=== PATIENT | male | born 1935 | race Caucasian/White ===

== ENCOUNTER 2022-02-23 07:38 | Emergency (ER) | payer MEDICARE, BC, SELFPAY ==
[2022-02-23 07:48] VITALS: BP 180/92; PULSE 68; RESP 20; TEMP 36.3; O2SAT 96; BMI 32.4
--- NOTE | 2022-02-23 07:57 | CRLHL7_ITS ---
For Patients: As a result of the Century Cures Act, medical imaging exams and procedure reports are released immediately into your electronic medical record. You may view this report before your referring provider. If you have questions, please contact your health care provider. Indication : Dizziness. TECHNIQUE: Axial noncontrast CT cuts were performed from the skull base to the vertex. Findings : There is moderate cerebral volume loss. 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 There is no intracranial mass, hemorrhage or cortical infarction. There is no midline shift or transtentorial herniation. The calvarium is intact. The visualized paranasal sinuses and orbits appear normal. IMPRESSION: Age related changes of the brain. No acute abnormality. Please note that all CT scans at this facility use dose modulation, iterative reconstruction, and/or weight-based dosing when appropriate to reduce radiation dose to as low as reasonably achievable. Dictated by Dominic Sotelo MD @ 02/23/2022 9:09:44 AM (Electronically Signed)
--- NOTE | 2022-02-23 07:59 | ED.GENADULT ---
HPI - General Adult General Time Seen by Provider: 07:58 Date Seen: 02/23/22 Chief complaint: Dizziness/Vertigo Stated complaint: High BP last reading 180/120 Time Seen by Provider: 02/23/22 07:50 Source: patient Mode of arrival: ambulatory Limitations: no limitations History of Present Illness HPI narrative: Noah is a very pleasant 86 year white male who went to bed feeling well last night, woke up this morning stood by his bed, got up somewhat quickly and felt dizzy he fell sideways but caught himself. He did not have any injury from the fall. He did not hit the floor. He had no focal weakness no inability to speak no visual problem no facial asymmetry, he had no chest pain or shortness of breath. He has felt well recently. He is only on losartan, and a medication for diarrhea. He had back surgery within the last year that went well. He denies any bowel or bladder incontinence fever chills perineal numbness. Patient reports the spell lasted maybe 3 minutes. He feels completely normal now. He had no palpitations. He has no heart disease Related Data Home Medications Medication Instructions Recorded Confirmed brimonidine 0.2 % eye drops drp OPHTHALMIC (EYE) 02/23/22 budesonide 3 mg mg PO 02/23/22 capsule,delayed,extended release cephalexin 500 mg capsule mg 02/23/22 latanoprost 0.005 % eye drops drp OPHTHALMIC (EYE) 02/23/22 losartan 100 tab 02/23/22 mg-hydrochlorothiazide 25 mg tablet timolol maleate 0.5 % eye drops drp OPHTHALMIC (EYE) 02/23/22 travoprost 0.004 % eye drops drp OPHTHALMIC (EYE) 02/23/22 Allergies Allergy/AdvReac Type Severity Reaction Status Date / Time No Known Drug Allergies Allergy Verified 02/23/22 07:56 Review of Systems Status of ROS: Reports: 10 or more systems reviewed and unremarkable except as noted in History and below [facility] Medical History Arthritis Social History Smoking Status: Never smoker Do you use any of these nicotine containing products: None Second hand tobacco smoke exposure: No How often do you have a drink containing alcohol: 2-4 times a month How many standard drinks containing alcohol do you have on a typical day: 1 or 2 How often do you have six or more drinks on one occasion: Never AUDIT-C Alcohol total score: 2 Non-prescribed substance use: denies use service: Yes Active Problems (Updated 02/23/22 @ 08:20 by Zheng Aquino MD) Hypertension (Acute) I10 Joint replaced (Acute) Z96.60 Dizziness (Acute) R42 Medical History Arthritis Social History Smoking Status: Never smoker Do you use any of these nicotine containing products: None Second hand tobacco smoke exposure: No How often do you have a drink containing alcohol: 2-4 times a month How many standard drinks containing alcohol do you have on a typical day: 1 or 2 How often do you have six or more drinks on one occasion: Never AUDIT-C Alcohol total score: 2 Non-prescribed substance use: denies use service: Yes Exam Narrative: Exam Narrative: Objective: In general patient is no apparent distress HEENT is unremarkable, no scleral icterus, no facial asymmetry neck Mouth is well hydrated, tongue protrudes midline Neck is supple Chest is clear Heart rate and rhythm regular 2/6 systolic murmur occasional ectopic beat noted Abdomen obese benign nontender Extremities are no edema Neurologic nonfocal upper lower extremities good strength sensation Skin exam is unremarkable, warm and dry Const: Vital Signs, click to edit/add: Vital Signs - 24 hr 02/23/22 07:48 02/23/22 08:00 02/23/22 08:37 Temperature 97.4 F L Pulse Rate [Pulse Oximeter] 68 65 91 Respiratory Rate 20 18 Blood Pressure [Ri ght Upper Arm] 180/92 H 152/89 H 150/91 H Pulse Oximetry 96 94 93 Course Course Hospital Course: Because of the patient's complaint of dizziness and his age, I think would be appropriate to do a head CT scan to make sure he has not had a stroke, electrolytes lab values, IV hydration. EKG and troponin. Vital Signs Vital signs: Initial Vital Signs Temperature 97.4 F L 02/23/22 07:48 Temperature Source Temporal Artery Scan 02/23/22 07:48 Pulse Rate 68 02/23/22 07:48 Pulse Rhythm 02/23/22 07:48 Respiratory Rate 20 02/23/22 07:48 Blood Pressure 180/92 H 02/23/22 07:48 Blood Pressure Mean 121 02/23/22 07:48 Pulse Oximetry 96 02/23/22 07:48 Oxygen Delivery Method 02/23/22 07:48 Vital Signs Temperature 97.4 F L 02/23/22 07:48 Pulse Rate 68 02/23/22 07:48 Respiratory Rate 20 02/23/22 07:48 Blood Pressure 180/92 H 02/23/22 07:48 Pulse Oximetry 96 02/23/22 07:48 Temperature 97.4 F L 02/23/22 07:48 Pulse Rate 91 02/23/22 08:37 Respiratory Rate 18 02/23/22 08:00 Blood Pressure 150/91 H 02/23/22 08:37 Pulse Oximetry 93 02/23/22 08:37 Medical Decision Making MDM Narrative Medical decision making narrative: The patient has a 3 minute period of dizziness, he does report that he was working in his garage yesterday building a ramp. It was warm and humid. He reports he does not drink enough water. Certainly he got up from bed and felt dizzy this could be a orthostatic type change due to mild dehydration, will rehydrate him, rule out stroke, rule out an abnormal troponin the patient had these symptoms several hours ago. His back to normal now. 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 scan is by my view unremarkable radiology confirms. There are only age-related changes. Troponin is unremarkable CBC is unremarkable some other labs are still pending but at this point I think Cole can return home, light activity and discharge instructions as in the discharge section. Lab Data Labs: Lab Results 02/23/22 02/23/22 Range/Units 08:35 08:35 WBC 6.45 (4.50-11.00) K/uL RBC 3.46 L (4.30-5.90) m/uL Hgb 11.8 L (13.5-17.5) gm/dL Hct 35.9 L (37.0-53.0) % MCV 104 H (80-100) fL MCH 34 (26-34) pg MCHC 33 (32-36) gm/dL RDW Coeff of Anju 13.6 (11.5-15.5) % Plt Count 208 (140-440) K/uL Neut % (Auto) 71.1 (42.0-72.0) % Lymph % (Auto) 17.1 L (20-44) % [place] % (Auto) 8.8 (0.0-11.0) % Eos % (Auto) 2.2 (0.0-7.0) % Baso % (Auto) 0.6 (0.0-3.0) % Neut # (Auto) 4.59 (1.7-7.0) K/uL Lymph # (Auto) 1.10 (0.90-2.90) K/uL [place] # (Auto) 0.60 (0.00-0.90) K/UL Eos # (Auto) 0.14 (0.00-0.50) K/uL Baso # (Auto) 0.04 (0.00-0.30) K/uL Abs Immat Gran (auto) 0.01 (0.00-0.30) K/uL POC Troponin I 0.00 L (0.01-0.04) ng/ml Discharge Plan Discharge Clinical Impression: Dizziness Patient Disposition: Home w/ Parent or Adult Condition: Improved Instructions: Dizziness (ED) Activity Detail: Light activity, adequate hydration, recheck with regular doctor next 2 3 days, continue home medications Discharge Diet: Regular Prescriptions: No Action latanoprost 0.005 % drops OPHTHALMIC (EYE) 0RF travoprost 0.004 % drops OPHTHALMIC (EYE) 0RF Label Comments: INSTILL 1 DROP INTO BOTH EYES AT BEDTIME losartan-hydrochlorothiazide 100-25 mg tablet 0RF Label Comments: TAKE 1 TABLET BY MOUTH EVERY DAY cephalexin 500 mg capsule 0RF Label Comments: TAKE 4 CAPSULES BY MOUTH 30 TO 60 MINUTES PRIOR TO DENTAL WORK brimonidine 0.2 % drops OPHTHALMIC (EYE) 0RF budesonide 3 mg capsule,delayed,extend.release PO 0RF Label Comments: TAKE 3 CAPS ONCE A DAY X 1 MONTH, TAKE 2 CAPS ONCE A DAY X 1 MONTH, TAKE 1 CAP ONCE A DAY X 1 MONTH timolol maleate 0.5 % drops OPHTHALMIC (EYE) 0RF Follow Up/Referrals: Melodie Nick MD [Primary Care Provider] - Stand Alone Forms: [employer] Info Instructions
[2022-02-23 08:00] VITALS: BP 152/89; PULSE 65; RESP 18; O2SAT 94
[2022-02-23 08:37] VITALS: BP 150/91; PULSE 91; O2SAT 93
[2022-02-23 08:51] LABS: Basophils Absolute Auto 0.04 K/uL (0.00-0.30); Basophils Percent Auto 0.6 % (0.0-3.0); Eosinophils Absolute Auto 0.14 K/uL (0.00-0.50); Eosinophils Percent Auto 2.2 % (0.0-7.0); Hematocrit 35.9 % (37.0-53.0); Hemoglobin* 11.8 gm/dL (13.5-17.5); Immature Granulocytes Abs Auto 0.01 K/uL (0.00-0.30); Lymphocytes Percent Auto 17.1 % (20-44); Mean Corpuscular HGB Conc 33 gm/dL (32-36); Mean Corpuscular Hemoglobin 34 pg (26-34); Mean Corpuscular Volume 104 fL (80-100); Monocytes Percent Auto 8.8 % (0.0-11.0); Neutrophils Absolute Auto 4.59 K/uL (1.7-7.0); Neutrophils Percent Auto 71.1 % (42.0-72.0); Platelet Count* 208 K/uL (140-440); RDW Coefficient of Variation % 13.6 % (11.5-15.5); Red Blood Count 3.46 m/uL (4.30-5.90); White Blood Count* 6.45 K/uL (4.50-11.00)
[2022-02-23 08:53] LABS: Slide Review Reflex No
[2022-02-23] MEDS: 0.9 % SODIUM CHLORIDE 1000 ml 1,000 ML 6000 ML IV (08:59)
[2022-02-23 09:00] VITALS: BP 149/105; PULSE 58; RESP 18; O2SAT 90
[2022-02-23 09:04] LABS: Albumin* 3.8 g/dL (3.3-5.0); Chloride* 107 mmol/L (96-114)
[2022-02-23 09:05] LABS: Sodium* 135 mmol/L (135-149)
[2022-02-23 09:06] LABS: INR 0.97 (0.91-1.10); Prothrombin Time 13.3 Seconds
[2022-02-23 09:07] LABS: Alkaline Phosphatase* 87 U/L (40-150); Aspartate Amino Transferase* 37 U/L (12-35); Bilirubin Direct* 0.3 mg/dL (0.0-0.5); Bilirubin Total* 0.9 mg/dL (0.1-1.5); Blood Urea Nitrogen* 35 mg/dL (7-30); Carbon Dioxide* 27 mmol/L (20-32); Creatinine* 0.9 mg/dL (0.5-1.5); Est. Creatinine Clearance* 56.78; Estimated Glomerular Filt Rate 84.22; Total Protein* 6.3 g/dL (6.0-8.3)
[2022-02-23 09:08] LABS: Alanine Aminotransferase* 20 U/L (4-50); Calcium* 9.2 mg/dL (8.4-10.6); Glucose* 103 mg/dL (60-115)
[2022-02-23 09:16] LABS: NT Pro B Type NatriureticPept* 474 PG/mL (0-450)
[2022-02-23 09:27] LABS: C Reactive Protein* < 0.5 mg/dL (0.5-1.0)
== END 2022-02-23 09:50 ==
LOC: ED 08:48
PROVIDERS: Emergency Provider Family Medicine; PCP Family Medicine
DX: R42 Dizziness and giddiness (principal)
CPT/HCPCS: 36415; 70450; 80048; 80076; 83880; 84484; 85025; 85610; 86140; 93005; 99285; J7030

== ENCOUNTER 2022-02-23 23:12 | Emergency (ER) | payer MEDICARE, BC, SELFPAY ==
[2022-02-23 23:20] VITALS: BP 169/93; PULSE 74; RESP 18; TEMP 36.8; O2SAT 94; BMI 32.5
[2022-02-24 00:15] VITALS: BP 133/84; BP 143/75; BP 148/99; PULSE 75; PULSE 84; PULSE 99
[2022-02-24 00:17] LABS: Basophils Absolute Auto 0.04 K/uL (0.00-0.30); Basophils Percent Auto 0.6 % (0.0-3.0); Eosinophils Absolute Auto 0.09 K/uL (0.00-0.50); Eosinophils Percent Auto 1.3 % (0.0-7.0); Hematocrit 33.8 % (37.0-53.0); Hemoglobin* 11.3 gm/dL (13.5-17.5); Immature Granulocytes Abs Auto 0.02 K/uL (0.00-0.30); Lymphocytes Absolute Auto 1.44 K/uL (0.90-2.90); Lymphocytes Percent Auto 20.9 % (20-44); Mean Corpuscular HGB Conc 33 gm/dL (32-36); Mean Corpuscular Hemoglobin 35 pg (26-34); Mean Corpuscular Volume 104 fL (80-100); Monocytes Percent Auto 7.8 % (0.0-11.0); Neutrophils Absolute Auto 4.77 K/uL (1.7-7.0); Neutrophils Percent Auto 69.1 % (42.0-72.0); Platelet Count* 211 K/uL (140-440); RDW Coefficient of Variation % 13.8 % (11.5-15.5); Red Blood Count 3.26 m/uL (4.30-5.90)
[2022-02-24 00:20] LABS: Slide Review Reflex No
--- NOTE | 2022-02-24 00:29 | ED.GIBLEED ---
HPI - GI Bleed General Chief complaint: GI Bleed Stated complaint: BLOODY STOOL Time Seen by Provider: 02/23/22 23:46 History of Present Illness HPI Narrative: Patient is a a 86-year-old gentleman who was here earlier today for dizziness. Workup was unremarkable. His hemoglobin was stable at 11.8. Patient was sent home and his dizziness has resolved. Patient passed 1 maroon-colored clotted stool proximally 3 hours ago. He has been feeling well ever since is had no further bowel movements. He has had no fevers no chills no night sweats no abdominal pain. He is now feeling 100% well and would like to go back home. He is not on aspirin or any blood thinners. Related Data Home Medications Medication Instructions Recorded Confirmed brimonidine 0.2 % eye drops drp OPHTHALMIC (EYE) 02/23/22 budesonide 3 mg mg PO 02/23/22 capsule,delayed,extended release cephalexin 500 mg capsule mg 02/23/22 latanoprost 0.005 % eye drops drp OPHTHALMIC (EYE) 02/23/22 losartan 100 tab 02/23/22 mg-hydrochlorothiazide 25 mg tablet timolol maleate 0.5 % eye drops drp OPHTHALMIC (EYE) 02/23/22 travoprost 0.004 % eye drops drp OPHTHALMIC (EYE) 02/23/22 Allergies Allergy/AdvReac Type Severity Reaction Status Date / Time No Known Drug Allergies Allergy Verified 02/23/22 07:56 Review of Systems Status of ROS: Reports: 10 or more systems reviewed and unremarkable except as noted in History and below [facility] Medical History Arthritis Social History Smoking Status: Never smoker Do you use any of these nicotine containing products: None Second hand tobacco smoke exposure: No How often do you have a drink containing alcohol: 2-4 times a month How many standard drinks containing alcohol do you have on a typical day: 1 or 2 How often do you have six or more drinks on one occasion: Never AUDIT-C Alcohol total score: 2 Non-prescribed substance use: denies use service: Yes Exam Narrative: Exam Narrative: EXAM GENERAL: Patient appears comfortable and well. EYES: No scleral icterus. LYMPH: No supraclavicular or cervical lymphadenopathy. SKIN: Visible skin seen during exam normal or with benign process only. EXT: No dependent lower extremity pedal edema. HEART: Regular rate and rhythm with no murmurs, rubs, or gallops. LUNGS: Clear to auscultation bilaterally with no crackles or wheezes. ABD: Soft, non tender, non distended. PSYCH: Good eye contact, speech is not pressured. Const: Vital Signs, click to edit/add: Vital Signs - 24 hr 02/23/22 23:20 02/24/22 00:15 Temperature 98.2 F Pulse Rate [Right Pulse Oximeter] 74 Pulse Rate [orthos tatic lying Right Blood Pressure Cuf f] 75 Pulse Rate [orthos tatic sitting Righ t Blood Pressure C uff] 84 Pulse Rate [orthos tatic standing Rig ht Blood Pressure Cuff] 99 Respiratory Rate 18 Blood Pressure [Le ft Upper Arm] 169/93 H Blood Pressure [or thostatic lying Ri ght Arm] 143/75 H Blood Pressure [or thostatic sitting Right Arm] 148/99 H Blood Pressure [or thostatic standing Right Arm] 133/84 Pulse Oximetry 94 Course Course Hospital Course: Patient seen examined. Patient shows no signs of orthostasis. Hemoglobin down only from 11.8-11.3. Vital Signs Vital signs: Initial Vital Signs Temperature 98.2 F 02/23/22 23:20 Temperature Source Temporal Artery Scan 02/23/22 23:20 Pulse Rate 74 02/23/22 23:20 Respiratory Rate 18 02/23/22 23:20 Blood Pressure 169/93 H 02/23/22 23:20 Blood Pressure Mean 118 02/23/22 23:20 Blood Pressure Position Sitting 02/23/22 23:20 Pulse Oximetry 94 02/23/22 23:20 Oxygen Delivery Method 02/23/22 23:20 Vital Signs Temperature 98.2 F 02/23/22 23:20 Pulse Rate 74 02/23/22 23:20 Respiratory Rate 18 02/23/22 23:20 Blood Pressure 169/93 H 02/23/22 23:20 Pulse Oximetry 94 02/23/22 23:20 Temperature 98.2 F 02/23/22 23:20 Pulse Rate 75 02/24/22 00:15 Respiratory Rate 18 02/23/22 23:20 Blood Pressure 143/75 H 02/24/22 00:15 Pulse Oximetry 94 02/23/22 23:20 MDM - GI Bleed MDM Narrative Medical decision making narrative: Patient had full workup earlier today. He has normal vital signs is not passing any further dark tarry Or melanotic stools. He now feels well and is been 3 hours since his last bowel movement. His hemoglobin is stable and we did elect to send home with close outpatient follow-up. Lab Data Labs: Lab Results 02/24/22 Range/Units 00:05 WBC 6.90 (4.50-11.00) K/uL RBC 3.26 L (4.30-5.90) m/uL Hgb 11.3 L (13.5-17.5) gm/dL Hct 33.8 L (37.0-53.0) % MCV 104 H (80-100) fL MCH 35 H (26-34) pg MCHC 33 (32-36) gm/dL RDW Coeff of Anju 13.8 (11.5-15.5) % Plt Count 211 (140-440) K/uL Neut % (Auto) 69.1 (42.0-72.0) % Lymph % (Auto) 20.9 (20-44) % [place] % (Auto) 7.8 (0.0-11.0) % Eos % (Auto) 1.3 (0.0-7.0) % Baso % (Auto) 0.6 (0.0-3.0) % Neut # (Auto) 4.77 (1.7-7.0) K/uL Lymph # (Auto) 1.44 (0.90-2.90) K/uL [place] # (Auto) 0.50 (0.00-0.90) K/UL Eos # (Auto) 0.09 (0.00-0.50) K/uL Baso # (Auto) 0.04 (0.00-0.30) K/uL Abs Immat Gran (auto) 0.02 (0.00-0.30) K/uL Discharge Plan Discharge Clinical Impression: Hematochezia Patient Disposition: Home, Self-Care Condition: Stable Instructions: Melena (ED) Additional Instructions: follow-up with your doctor by phone tomorrow to discuss further treatment and monitor for further loose bloody stools. Activity Level: No Restrictions Discharge Diet: Regular Prescriptions: No Action latanoprost 0.005 % drops OPHTHALMIC (EYE) 0RF travoprost 0.004 % drops OPHTHALMIC (EYE) 0RF Label Comments: INSTILL 1 DROP INTO BOTH EYES AT BEDTIME losartan-hydrochlorothiazide 100-25 mg tablet 0RF Label Comments: TAKE 1 TABLET BY MOUTH EVERY DAY cephalexin 500 mg capsule 0RF Label Comments: TAKE 4 CAPSULES BY MOUTH 30 TO 60 MINUTES PRIOR TO DENTAL WORK brimonidine 0.2 % drops OPHTHALMIC (EYE) 0RF budesonide 3 mg capsule,delayed,extend.release PO 0RF Label Comments: TAKE 3 CAPS ONCE A DAY X 1 MONTH, TAKE 2 CAPS ONCE A DAY X 1 MONTH, TAKE 1 CAP ONCE A DAY X 1 MONTH timolol maleate 0.5 % drops OPHTHALMIC (EYE) 0RF Follow Up/Referrals: Melodie Nick MD [Primary Care Provider] - Stand Alone Forms: [facility] Info Instructions
== END 2022-02-24 01:04 | disposition home or self-care (01) ==
LOC: ED 02-24 00:55
PROVIDERS: Emergency Provider Internal Medicine; PCP Family Medicine
DX: R42 Dizziness and giddiness (principal)
CPT/HCPCS: 36415; 85025; 99283; 99284

== ENCOUNTER 2022-03-14 08:07 | Outpatient (CLI) | payer MEDICARE, BC, SELFPAY | END 2022-03-14 08:08 | disposition home or self-care (01) | LOC: AMB 03-29 20:43 | PROVIDERS: PCP Family Medicine; Visit Provider Emergency Medicine | DX: I10 Essential (primary) hypertension (principal) ==

== ENCOUNTER 2022-03-17 16:00 | Outpatient (RCR) | payer MEDICARE, BC, SELFPAY | END 2022-09-10 09:47 | disposition home or self-care (01) | PROVIDERS: PCP Family Medicine; Visit Provider Family Medicine | DX: R26.9 Unspecified abnormalities of gait and mobility (principal); M62.81 Muscle weakness (generalized); Z51.89 Encounter for other specified aftercare | CPT/HCPCS: 97110 ==

== ENCOUNTER 2023-01-29 15:00 | Outpatient (RCR) | payer MEDICARE, BC, SELFPAY | END 2023-05-29 23:59 | disposition home or self-care (01) | PROVIDERS: PCP Family Medicine; Visit Provider Family Medicine | DX: Z98.1 Arthrodesis status (principal); R53.1 Weakness; R26.9 Unspecified abnormalities of gait and mobility; R26.81 Unsteadiness on feet; Z51.89 Encounter for other specified aftercare | CPT/HCPCS: 97110; 97162 ==

== ENCOUNTER 2024-03-19 14:02 | Emergency (ER) | payer MEDICARE, BC, SELFPAY ==
[2024-03-19] VITALS (7 sets, daily range): BP systolic 121; BP diastolic 63; PULSE 69–79; RESP 16; TEMP 36.7; O2SAT 90–95; BMI 31.0
--- NOTE | 2024-03-19 14:26 | CRLHL7_ITS ---
For Patients: As a result of the Cures Act, medical imaging exams and procedure reports are released immediately into your electronic medical record. You may view this report before your referring provider. If you have questions, please contact your health care provider. Indication: Injury. Technique: Left knee, 3 views. Comparison: None. Findings/Impression: Bones: Alignment is normal. No displaced fractures or bone lesions. Joint spaces: Mild tricompartmental degenerative changes with chondrocalcinosis. Large joint effusion. Soft tissues: Unremarkable. Dictated by Cole Fields MD @ 03/19/2024 3:37:28 PM (Electronically Signed)
--- NOTE | 2024-03-19 14:27 | ED_ITS ---
HPI - Fall General Chief Complaint: Fall/Minor Trauma Stated Complaint: Fall, L knee injury Time Seen by Provider: 03/19/24 14:05 History of Present Illness HPI Narrative: Patient is an 88-year-old gentleman who stumbled while walking his dog yesterday. Patient will was walking his small dog when he stumbled and twisted his left knee. He fell to the ground scraping his right knee and crawled back to his 4 wheeled walker with the right knee. Superficial abrasions are healing well. Patient takes full aspirin daily. He did not hit his head he did not lose consciousness. Patient is having tenderness in the left knee. The knee has some minor swelling but no abrasions. Patient is able put some limited weight on his knee but is very tender. There is no redness or warmth no significant swelling no signs of effusion. Related Data Home Medications ?Medication ?Instructions ?Recorded ?Confirmed brimonidine 0.2 % eye drops 1 drp ophthalmic (eye) 02/23/22 budesonide 3 mg mg PO 02/23/22 capsule,delayed,extended release cephalexin 500 mg capsule mg 02/23/22 latanoprost 0.005 % eye drops drp ophthalmic (eye) 02/23/22 losartan 100 1 tab 02/23/22 mg-hydrochlorothiazide 25 mg tablet timolol maleate 0.5 % eye drops drp ophthalmic (eye) 02/23/22 travoprost 0.004 % eye drops drp ophthalmic (eye) 02/23/22 amlodipine 5 mg tablet 5 mg PO DAILY 03/19/24 03/19/24 Allergies Allergy/AdvReac Type Severity Reaction Status Date / Time No Known Drug Allergies Allergy Verified 03/19/24 14:09 Review of Systems Status of ROS: Reports: 10 or more systems reviewed and unremarkable except as noted in History and below [facility] Medical History Arthritis ?M19.90 - Unspecified osteoarthritis, unspecified site (ICD-10) Social History Smoking Status: Never smoker Do you use any of these nicotine containing products: None Second hand tobacco smoke exposure: No How often do you have a drink containing alcohol: 2-4 times a month How many standard drinks containing alcohol do you have on a typical day: 1 or 2 How often do you have six or more drinks on one occasion: Never AUDIT-C Alcohol total score: 2 Non-prescribed substance use: denies use service: Yes Exam Narrative: Exam Narrative: EXAM GENERAL: Patient appears comfortable and well. EYES: No scleral icterus. LYMPH: No supraclavicular or cervical lymphadenopathy. SKIN: Abrasions noted over the right knee healing well. EXT: Examination left knee shows no effusions no erythema no warmth. Chronic arthritis of the left ankle noted. HEART: Regular rate and rhythm with no murmurs, rubs, or gallops. LUNGS: Clear to auscultation bilaterally with no crackles or wheezes. ABD: Soft, non tender, non distended. PSYCH: Good eye contact, speech is not pressured. Const: Vital Signs, click to edit/add: Vital Signs - 24 hr 03/19/24 14:11 03/19/24 14:22 03/19/24 14:23 Temperature 98.0 F Pulse Rate 73 69 Pulse Rate [Pulse Oximeter] 70 Respiratory Rate 16 Blood Pressure 121/63 Blood Pressure [Ri ght Upper Arm] 121/63 Pulse Oximetry 93 95 93 Oxygen Delivery Me thod Room Air 03/19/24 14:30 03/19/24 14:55 03/19/24 15:00 Temperature Pulse Rate 69 74 75 Pulse Rate [Pulse Oximeter] Respiratory Rate Blood Pressure Blood Pressure [Ri ght Upper Arm] Pulse Oximetry 90 95 95 Oxygen Delivery Me thod 03/19/24 15:15 Temperature Pulse Rate 79 Pulse Rate [Pulse Oximeter] Respiratory Rate Blood Pressure Blood Pressure [Ri ght Upper Arm] Pulse Oximetry 92 Oxygen Delivery Me thod Course Course ED Course: Patient seen and examined. X-ray of the left knee pending. Vital Signs Vital signs: Initial Vital Signs Temperature 98.0 F 03/19/24 14:11 Temperature Source Temporal Artery Scan 03/19/24 14:11 Pulse Rate 70 03/19/24 14:11 Respiratory Rate 16 03/19/24 14:11 Blood Pressure 121/63 03/19/24 14:11 Blood Pressure Mean 82 03/19/24 14:11 Blood Pressure Position High-Fowlers 03/19/24 14:11 Pulse Oximetry 93 03/19/24 14:11 Oxygen Delivery Method Room Air 03/19/24 14:11 Vital Signs Temperature 98.0 F 03/19/24 14:11 Pulse Rate 70 03/19/24 14:11 Respiratory Rate 16 03/19/24 14:11 Blood Pressure 121/63 03/19/24 14:11 Pulse Oximetry 93 03/19/24 14:11 Oxygen Delivery Method Room Air 03/19/24 14:11 Temperature 98.0 F 03/19/24 14:11 Pulse Rate 79 03/19/24 15:15 Respiratory Rate 16 03/19/24 14:11 Blood Pressure 121/63 03/19/24 14:22 Pulse Oximetry 92 03/19/24 15:15 Oxygen Delivery Method Room Air 03/19/24 14:11 Medications Administered Medications: Discontinued Medications Generic Name Dose Route Start Last Admin Trade Name Freq PRN Reason Stop Dose Admin Diphtheria/Tetanus/Acell Pertussis 0.5 ml 03/19/24 14:27 03/19/24 14:57 Tetanus/Diphth/Pertussis 0.5 Ml Syringe IM 03/19/24 14:28 0.5 ml .ONCE ONE Administration MDM - Fall MDM Narrative Medical decision making narrative: Patient is a 88-year-old gentleman who fell yesterday while walking his dog. He has pain and swelling in the left knee as well as abrasions on the right needed. Tetanus shot is updated. X-ray series is reviewed and he does have a small effusion but no fractures. At this time I did recommend ice compression elevation Tylenol Motrin and follow-up with primary care later in the week for PT versus MRI if symptoms do not improve. Differential diagnosis includes but not limited to knee sprain knee fracture dislocation hematoma hemarthrosis. Discharge Plan Discharge Clinical Impression: Injury of knee Patient Disposition: Home, Self-Care Condition: Stable Instructions: Knee Sprain (ED) Additional Instructions: Ice Tylenol Motrin Wrap Rest Follow-up with your doctor as needed. Activity Level: No Restrictions Discharge Diet: Regular Prescriptions: No Action latanoprost 0.005 % drops OPHTHALMIC (EYE) travoprost 0.004 % drops OPHTHALMIC (EYE) Patient Comments: INSTILL 1 DROP INTO BOTH EYES AT BEDTIME losartan-hydrochlorothiazide 100-25 mg tablet 1 tab Patient Comments: TAKE 1 TABLET BY MOUTH EVERY DAY cephalexin 500 mg capsule Patient Comments: TAKE 4 CAPSULES BY MOUTH 30 TO 60 MINUTES PRIOR TO DENTAL WORK brimonidine 0.2 % drops 1 drp OPHTHALMIC (EYE) budesonide 3 mg capsule,delayed,extend.release PO Patient Comments: TAKE 3 CAPS ONCE A DAY X 1 MONTH, TAKE 2 CAPS ONCE A DAY X 1 MONTH, TAKE 1 CAP ONCE A DAY X 1 MONTH timolol maleate 0.5 % drops OPHTHALMIC (EYE) amlodipine 5 mg tablet 5 mg PO DAILY Follow Up/Referrals: Melodie Nick MD [Primary Care Provider] - Stand Alone Forms: [employer] Info Instructions
--- OUTSIDE RECORDS SUMMARY | 2024-03-19 14:35 | XMS_ITS | Referral Summary ---
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 Active bismuth subsalicylate (PEPTO BISMOL) 262 MG chewable tablet Take 3 tablets by mouth 3 times daily For Colitis Active brimonidine (ALPHAGAN) 0.2 % ophthalmic solutionIndications: Open-Angle Glaucoma 1 drop every morning Active losartan-hydrochloro thiazide (HYZAAR) 100-25 MG tabletIndications:Hy pertension Take 1 tablet by mouth daily Active melatonin 1 MG CAPSIndications:Inso mnia Take 2 mg by mouth nightly as needed Active acetaminophen (TYLENOL) 500 MG tablet Take 1,000 mg by mouth every 6 hours as needed Active travoprost VAZQUEZ FREE (TRAVATAN Z) 0.004 % ophthalmic solutionIndications: Open-Angle Glaucoma Place 1 drop into both eyes At Bedtime Active ondansetron (ZOFRAN-ODT) 4 MG ODT tabIndications:S/P lumbar fusion Take 1 tablet (4 mg) by mouth every 6 hours as needed for nausea or vomiting 10 tablet 06/16/2020 Active oxyCODONE (ROXICODONE) 5 MG tabletIndications:S/ P lumbar fusion Take 1-2 tablets (5-10 mg) by mouth every 4 hours as needed for moderate to severe pain (one tab for moderate pain, two tabs for severe pain) 40 tablet 06/16/2020 Active senna-docusate (SENOKOT-S/PERICOLAC E) 8.6-50 MG tabletIndications:S/ P lumbar fusion Take 2 tablets by mouth 2 times daily as needed for constipation 60 tablet 06/16/2020 Active bisacodyl (DULCOLAX) 10 MG suppositoryIndicatio ns:Constipation, unspecified constipation type Place 1 suppository (10 mg) rectally daily as needed for constipation 06/18/2020 Active polyethylene glycol (MIRALAX) 17 g packetIndications:Co nstipation, unspecified constipation type Take 17 g by mouth 2 times daily as needed (constipation) 06/18/2020 Active methocarbamol (ROBAXIN) 500 MG tabletIndications:S/ P lumbar fusion Take 1 tablet (500 mg) by mouth 4 times daily as needed for muscle spasms 40 tablet 07/12/2020 Active oxyCODONE (ROXICODONE) 5 MG tabletIndications:DD D (degenerative disc disease), lumbar Take 1 tablet (5 mg) by mouth every 4 hours as needed for severe pain 25 tablet 07/12/2020 Active Active Problems Problem Noted Date Diagnosed Date S/P lumbar fusion 06/11/2020 Postoperative shock 06/11/2020 Respiratory failure, post-operative (H24) 2019 Immunizations Name Administration Dates Next Due Flu, Unspecified 05/27/2010 Influenza (High Dose) 3 valent vaccine 7 Influenza Vaccine 65+ (Fluzone HD) 05/31/2020 Influenza Vaccine >6 months,quad, PF 06/05/2019 Influenza, seasonal, injectable, PF 05/27/2010 Mantoux Tuberculin Skin Test 07/03/2020 Pneumo Conj 13-V (2010&after) 12/12/2014 Pneumococcal 23 valent 05/27/2010,12/07/2002 TDAP Vaccine (Adacel) 03/30/2013 Social History Tobacco Use Types Packs/Day Years Used Date Smoking Tobacco: Never Smokeless Tobacco: Never Alcohol Use Standard Drinks/Week Comments Yes 0 (1 standard drink = 0.6 oz pur e alcohol) Occas Adolescent Education Answer Date Record ed Getting School Help Needed Not on file 05/16 Sex and Gender Information Value Date Recorded Sex Assigned at Not on file Gender Identity Not on file Sexual Orientation Not on file Last Filed Vital Signs Vital Sign Reading Time Taken Comments Blood Pressure 130/72 07/12/2020 6:47 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 Pulse 71 07/12/2020 6:47 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 Temperature 35.8 ??C (96.5 ??F) 07/12/2020 6:47 AM CS T Respiratory Rate 18 07/12/2020 6:47 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 Oxygen Saturation 93% 07/12/2020 6:47 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 Inhaled Oxygen Concentration - - Weight 110.3 kg (243 lb 1.6 oz) 07/10/2020 6:48 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 Height 177.8 cm (5' 10) 07/10/2020 6:48 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 Body Mass Index 34.88 07/10/2020 6:48 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 Plan of Treatment Not on file Medical Devices Implanted Type Area Airport Engineer Device Identifier Shelf Expiration Date Model / Serial / Lot Graft Bone Magnifuse [id number] Implanted:Qty : 1 on 06/11/2020 by Nahid Recinos MD at [facility] Bone/Tis leti/Biol ogic N/A: Spine Lumbar [employer] 03/25/2022 [id number] / [id number] / Creo 5.5, 4.5 X 45mm Negron Coated Polyaxial Screw Implanted:Qty : 1 on 06/11/2020 by Nahid Recinos MD at [facility] N/A: Spine Thoracic [employer] 11/25/2023 5119.1346S / / [id number] Locking Caps Implanted:Qty : 16 on 06/11/2020 by Nahid Recinos MD at [facility] N/A: Spine Lumbar [employer] 1119.0000 / / [id number] 5.5mm Pre-Contoured Kp 350mm Implanted:Qty : 2 on 06/11/2020 by Nahid Recinos MD at [facility] N/A: Spine Lumbar [employer] 1119.8732 / / [id number] Rise Spacer 10 X 30mm, 7-14mm Implanted:Qty : 1 on 06/11/2020 by Nahid Recinos MD at [facility] N/A: Spine Lumbar [employer] 193.103 / / [id number] 5.5mm Cross Connect 32-40mm Implanted:Qty : 1 on 06/11/2020 by Nahid Recinos MD at [facility] N/A: Spine Lumbar [employer] 1119.0034 / / [id number] 5.5mm Cross Connect 48-60mm Implanted:Qty : 1 on 06/11/2020 by Nahid Recinos MD at [facility] N/A: Spine Lumbar [employer] 1119.0046 / / [id number] Creo 5.5, 4.5 X 45mm Negron Coated Polyaxial Screw Implanted:Qty : 1 on 06/11/2020 by Nahid Recinos MD at [facility] N/A: Spine Thoracic [employer] 02/25/2024 5119.1346S / / [id number] Creo 5.5, 6.5 X 50mm Implanted:Qty : 7 on 06/11/2020 by Nahid Recinos MD at [facility] N/A: Spine Lumbar [employer] 5119.1650 / / [id number] Creo 5.5, 6.5 X 60mm Implanted:Qty : 1 on 06/11/2020 by Nahid Recinos MD at [facility] N/A: Spine Lumbar [employer] 5119.1660 / / [id number] Creo 5.5, 7.5 X 50mm Implanted:Qty : 1 on 06/11/2020 by Nahid Recinos MD at [facility] N/A: Spine Lumbar [employer] 5119.1750 / / [id number] Creo 5.5, 5.5 X 50mm Implanted:Qty : 1 on 06/11/2020 by Nahid Recinos MD at [facility] N/A: Spine Lumbar [employer] 5119.1550 / / [id number] Creo 5.5, 6.5 X 45mm Implanted:Qty : 1 on 06/11/2020 by Nahid Recinos MD at [facility] N/A: Spine Lumbar [employer] 5119.1644 / [id number] Creo 5.5, 6.5 X 55mm Implanted:Qty : 2 on 06/11/2020 by Nahid Recinos MD at [facility] N/A: Spine Lumbar [employer] 5119.1654 / [id number] Creo 5.5, 7.5 X 45mm Implanted:Qty : 1 on 06/11/2020 by Nahid Recinos MD at [facility] N/A: Spine Lumbar [employer] 5119.1744 / [id number] Advance Directives For more information, please contact: [phone] Documents on File Type Date Recorded Patient Manufacturing Design Engineer Expl anation Advance Directives and Living Will 05/06/2020 12:30 PM Health Care Directiv e 02/24/18 * Full Code (Latest Code Status on File) Date Activated Date Inactivated Comments 06/11/2020 9:38 PM 06/18/2020 4:07 PM All basic and advanced life-sustaining interventions are performed as appropriate Question Answer Comments Code status determined by: Other (please documen t) Healthcare Agents on File Name Relationship Healthcare Agent Relationshi p Communication Thony East Son [employer] Alterna te Health Care Agent Shira Crow Daughter [employer] Herman osorio Health Care Agent Jacklyn East Spouse Health Care Agent Care Teams Retail Tire Sales Manager Relationship Specialty Start Date End Date Leena Rodriguez MD [facility] [address] [address] PCP - General Internal Medicine 03/27/20
--- OUTSIDE RECORDS SUMMARY | 2024-03-19 14:35 | XMS_ITS | Encounter Summary ---
Author Organization [facility] Address [address] [place] [address]. [place] [address] Care Team Providers Care Food Safety Technician Name Role Phone Leena Rodriguez MD Primary Care Provider [phone] Shirley Mckeon APRN [facility] FORMER Unavailable + Encounter Details Date Type Department Care Team (Late st Contact Info) Description 06/06/2020 External Order Results [facility] [address] [place] [address] Outside, Provider Social History Tobacco Use Types Packs/Day Years Used Date Smoking Tobacco: Never Smokeless Tobacco: Never Alcohol Use Standard Drinks/Week Comments Yes 0 (1 standard drink = 0.6 oz pur e alcohol) Occas Sex and Gender Information Value Date Recorded Sex Assigned at Not on file Gender Identity Not on file Sexual Orientation Not on file COVID-19 Exposure Response Date Recorded In the last month, have you been in contact with someone who was confirmed or suspected to have Coronavirus / COVID-19? No / Unsure 05/29/2020 3:47 PM CDT documented as of this encounter Plan of Treatment Not on file documented as of this encounter Procedures Procedure Name Priority Date/Time Associated Diagnosis Comments COVID-19 VIRUS (CORONAVIRUS) BY PCR (EXTERNAL RESULT) Routine 06/06/2020 11:24 AM CDT documented in this encounter Results * COVID-19 Virus (Coronavirus) by PCR (External Result) (06/06/2020 11:24 AM CDT) COVID-19 Virus by PCR (External Result) ABSENT ABSENT [facility] 06/06/2020 11:2 4 AM CDT Narrative [facility] - 06/20/2020 9:15 AM CDT Verified by Rubin Miller on 06/20/2020. Patient Reported LABORATORY [facility] [address] [place] [address] documented in this encounter Visit Diagnoses Not on filedocumented in this encounter Care Teams Food Safety Technician Relationship Specialty Start Date End Date Leena Rodriguez MD [facility] & [address] [address] PCP - General Internal Medicine 03/27/20 Shirley Mckeon APRN [facility] FORMER [address] [place] [id number] Assigned PCP 05/23/20 11/13/20 documented as of this encounter
--- OUTSIDE RECORDS SUMMARY | 2024-03-19 14:35 | XMS_ITS | Continuity of Care Document ---
Author Organization [facility] Address [address] [place] [address] Phone Care Team Providers Care Twisting Frame Fixer Name Role Phone Unavailable Unavailable Unavailable Allergies, Adverse Reactions, Alerts Substance Reaction Status Criticality No Known Allergies Active No Inform ation Medications Medication Instructions Dosage Effective Dates (start - stop) Status Comments COMBIGAN 0.2/0.5 OPTH PIEDAD ALLERGAN MG SOLUTION 3.3+ INSTILL 1 DROP BY OPHTHALMIC ROUTE TWICE A DAY IN BOTH EYES 1 drop - Active Travatan Z 0.004 % eye drops INSTILL 1 DROP IN BOTH EYES EVERY EVENING 1 drop - Active dorzolamide 2 % eye drops instill 1 drop by ophthalmic route 2 times everyday into both eyes - Active DIOVAN (unknown strength) Not Available - Active GLUCOSAMINE CHONDROITIN PLUS (unknown strength) Not Available - Active Procedures Procedure Date Est Intermediate E&M Intermediate Eye Code - Established OCT-Glaucoma Bilateral Est Extended E&M Comprehensive Eye Code - Established Apr OCT-Glaucoma Bilateral OPTIC NERVE HEAD EVAL DONE Visual Field - Complete - Bilateral Corneal Pachymetry-Bilateral Est Extended E&M Est Extended E&M Visual Field - Complete - Bilateral Corneal Pachymetry-Bilateral OPTIC NERVE HEAD EVAL DONE Visual Field - Complete - Bilateral Est Extended E&M OPTIC NERVE HEAD EVAL DONE OCT-Glaucoma Bilateral Est Intermediate E&M Est Intermediate E&M OCT-Glaucoma Bilateral OPTIC NERVE HEAD EVAL DONE Refraction Post OP Id POSTOP FOLLOW-UP VISIT Post OP Id POSTOP FOLLOW-UP VISIT POSTOP FOLLOW-UP VISIT POSTOP FOLLOW-UP VISIT Post OP Id POSTOP FOLLOW-UP VISIT POSTOP FOLLOW-UP VISIT Post OP Id Extracapsular Cataract Removal 15 IOL Master OCT-Macular Bilateral POSTOP FOLLOW-UP VISIT OCT-Macular Bilateral Post OP Id Est Intermediate E&M Post OP Id POSTOP FOLLOW-UP VISIT Post OP Id Est Intermediate E&M Post OP Id POSTOP FOLLOW-UP VISIT Post OP Id Extracapsular Cataract Removal 15 A-Scan Measurement A-Scan Measurement OCT-Glaucoma Bilateral Est Extended E&M Est Comprehensive E&M IOL Master OCT-Glaucoma Bilateral OPTIC NERVE HEAD EVAL DONE Advance Directives Directive Yes / No Effective Date File Name No Information Encounters Encounter Description Practice Location Reason(s) For Visit Diagnoses Date Provider Providers Copied on Encounter [facility], [address] [place], [id number] , [place] tel: [phone] [facility] No Information 7 No Information Est Intermediate E&M [facility], [address] [place], [id number] , [place] tel: [phone] [facility] Glaucoma Check (chief complaint) Other secondary cataract, bilateralPresenc e of intraocular lensVitreous degeneration of left eyeBilateral pterygium of eyesPrimary open-angle glaucoma, right eye, mild stagePrimary open-angle glaucoma, left eye, moderate stagePuckering of macula of left eye 7 No Information [facility], [address] [place], [id number] , [place] tel: [phone] [facility] No Information 7 Kathy [address]ard. [address] [place], [id number], [place]. tel:[phone] [facility], [address] [place], [id number] , [place] tel: [phone] [facility] follow up (chief complaint) Presence of intraocular lensPrimary open-angle glaucoma, mild stagePrimary open-angle glaucoma, moderate stageBilateral pterygium of eyesVitreous degeneration of left eyePuckering of macula of left eyeOther secondary cataract, bilateral 6 No Information [facility], [address] [place], [id number] , [place] tel: [phone] [facility] Glaucoma Check (chief complaint) Primary open-angle glaucoma, mild stagePrimary open-angle glaucoma, moderate stageBilateral pterygium of eyesPresence of intraocular lens 6 No Information [facility], [address] [place], [id number] , [place] tel: [phone] [facility] follow up (chief complaint) Primary open-angle glaucoma, moderate stagePrimary open-angle glaucoma, mild stageAmyloid pterygium of eye, bilateralPuckeri ng of macula, left eyePresence of intraocular lens 6 [address] [place], [address]. tel:[phone] Referring Provider: Devon Norwood V, [address] [place], [address]. tel:[phone] [facility], [address] [place], [id number] , [place] tel: [phone] [facility] Follow up (chief complaint) Primary open-angle glaucoma, mild stagePrimary open-angle glaucoma, moderate stagePuckering of macula, left eyePresence of intraocular lensOther secondary cataract, left eyeAmyloid pterygium of eye, bilateral Oct-2 5 [facility]. [address] [place], [address]. tel: [address] [place] [address] [facility], [address] [place], [id number] , [place] tel: [phone] [facility] Post-op Cataract (chief complaint) PseudophakiaOpen -angle glaucoma, unspecifiedEpire tinal membraneHypermet ropiaRegular astigmatismPresb yopia Apr-0 5 [facility]. [address] [place], [address]. tel:[address] [place] [address] [facility], [address] [place], [id number] , tel: [phone] [facility] Post-op Cataract (chief complaint) Open-angle glaucoma, unspecifiedPseud ophakiaOcular hypertensionHype rmetropiaRegular astigmatism Mar- 5 [facility]. [address] [place], [address]. tel:[address] [place] [address], [address] [place], [id number] , [place] tel: [phone] [facility] Post-op Cataract (chief complaint) Open-angle glaucoma, unspecified Mar- 5 No Information [facility], [address] [place], [id number] , [place] tel: [phone] [facility] F/U (chief complaint) Open-angle glaucoma, unspecifiedPseud ophakia Mar- 5 Kathy Hilliard. [address] [place], [id number], [place]. tel: [address] [place] [address] [facility], [address], [place], [id number] , [place] tel: [phone] [facility] Post-op Cataract (chief complaint) PseudophakiaOpen -angle glaucoma, unspecifiedOcula r hypertension [address], [place], [id number], [place]. tel:[phone] Referring Provider: Devon Norwood V, [address], [place], [address]. tel:[phone] [facility], [address], [place], [id number] , [place] tel: [phone] [facility] Post-op Cataract (chief complaint) Ocular hypertensionPseu dophakia [address], [place], [address]. tel:[phone] [facility], [address], [place], [id number] , [place] tel: [phone] [facility] No Information No Information [facility], [address] [place], [id number] , [place] tel: [phone] [facility] No Information No Information [facility], [address], [place], [id number] , [place] tel: [phone] [facility] Senile nuclear sclerosis No Information [facility], [address] [place], [id number] , [place] tel: [phone] [facility] Post-op Cataract (chief complaint) Open-angle glaucoma, unspecifiedOcula r hypertensionPseu dophakiaSenile nuclear sclerosisEpireti nal membrane [address], [place], [address]. tel:[phone] [facility], [address], [place], [id number] , [place] tel: [phone] [facility] Post-op Cataract (chief complaint) Open-angle glaucoma, unspecifiedPseud ophakiaEpiretina l membrane [address], [place], [address]. tel: [phone] [facility], [address], [place], [id number] , [place] tel: [phone] [facility] Post-op Cataract (chief complaint) PseudophakiaOcul ar hypertension [address] [place], [address]. tel: [phone] [facility], [address], [place], [id number] , [place] tel: [phone] [facility] IOP check-Follo w up (chief complaint) PseudophakiaOcul ar hypertensionOpen -angle glaucoma, unspecified [address] [place], [place], [address]. tel: [phone] Referring Provider: Devon Norwood V, [address], [place], [address]. tel:[phone] [facility], [address] [place], [place], [id number] , [place] tel: [phone] [facility] Post-op Cataract (chief complaint) Ocular hypertensionPseu dophakiaCornea edema 5 [address] [place], [place], [address]. tel: [phone] [facility], [address] [place], [id number] , [place] tel: [phone] [facility] No Information No Information [facility], [address] [place], [id number] , [place] tel: [phone] [facility] Referred-Ca taract Evaluation (chief complaint)G laucoma Check (chief complaint) Senile nuclear sclerosisCortica l senile cataractOpen-ang le glaucoma, unspecified 5 No Information [facility], [address], [place], [id number] , [place] tel: [phone] [facility] No Information 5 No Information Family History Family Member Type Diagnosis Age At Onset Mother Problem (finding) cataract Payers Payer name Insurance type Covered constitution party ID Authoriza tion(s) [employer] Medicare MB [id number] [facility] [id number] Social History Type Description Quantity Date Captured Comments Sex Male Smoking Status No Information Chief Complaint And Reason For Visit No Information Reason For Referral Reason For Referral No Information History Of Present Illness Encounter Date Complaint History Of Prese nt Illness Glaucoma Check Pt states that N VA and DVA OU unchanged x 8 months. Pt denies dryness or pain OU.Exam scribed by Jenn Florian. follow up Pt only wears RX for reading, he does not like the distance correction on his previous glasses OU. Pt states there is no pain today OU.Exam scribed by Jenn Florian. Glaucoma Check Pt states vision has not changed since last exam OU. Pt states there in no pain in the eyes today OU.Today's exam scribed by Mikayla Day follow up Pt. states that his vision has been stable over juan past few months OU. He has no eye pain OU. Follow up Pt states VA OU unchanged, everything has been good. No dryness OU. No pain OU. Post-op Cataract Pt states VA U nbelieveable Using readers for up close. VA much brighter. Pt denies pain OU.Pt states some of his Travatan bottles say to refrigerate, wants to know if this is necessary. Post-op Cataract Cat sx OS 5, Cat sx OD 04/09/15. Pt. states feels like VA OU improving. No eye pain OU, but does get occasional mild FB sensation OD. Post-op Cataract Pt states VA ge tting a little better everyday. Pt denies pain OU. F/U The 79 year old male presents for evaluation of F/U in the right eye and left eye. Patient states OU feels good today. VA OD blurry since sx but better than left. OS vision is shot Post-op Cataract Pt had high pre ssure when seeing Dr. Norwood.1 day post-op 04-09-15 OD IDslept well last night, Dva OD a little blurry today, no pain,headache, brow ache. Fbs today2 week post-op 03-26-15 OSVa OS - va improving, things look brighter. No pain/discomfortPt st he's taking another gtt for pressures? Using OD BID? Pt does not know name. Post-op Cataract 1 day post-op OD IDslept well last night, Dva OD a little blurry today, no pain,headache, brow ache. Fbs today2 week post-op 03-26-15 OSVa OS - va improving, things look brighter. No pain/discomfortPt st he's taking another gtt for pressures? Using OD BID? Pt does not know name. Post-op Cataract Pt states OS VA is improving little by little. Pt doesn't feel any pressure anymore. VA unchanged OD. No dryness OU. No eye pain OU. Post-op Cataract The 79 year old male presents for evaluation of Post-op Cataract in the left eye. Patient states vision is starting to clear up since surgery OS. No pain or discomfort OU. VA OD unchanged Post-op Cataract Pt. states VA O S clearing up a lot since yesterday. No SILVA's. No eye pain OU. VA OD unchanged. IOP check-Follow up Pt states VA OS has gotten a little better since yesterday. Pt states a headache started about 6 pm last night, took a couple ibuprofen to get it under control, headache is gone today. VA unchanged OD. No dryness OU. No eye pain OU. Post-op Cataract 1 day post op e tamia OS. Pt has had a headache since cataract surgery yesterday. It is on the left side of head. Tylenol helped some and it is getting better today. Pt denies any pain today in OU. Vision in blurred in OS and OD vision has not changed. Patient has glaucoma and uses dorzolamide in the morning OU, and travatan qhs OU. Pt did not take glaucoma drops yesterday or today. Referred-Cataract Evaluation Pt. states VA OU gradually decreasing over the past year. Problems reading street signs and reading small print. Unable to see golf ball clearly after hits it. No eye pain OU. Glaucoma Check Pt. ran out of T ravatan 3 days ago. Functional Status Date Functional Assessmen t No Information Instructions Date Instruction Additional Infor breann Follow up - Patient due for Dilated glaucoma check and OCT(ON) in April 2017 to be done in [place]. 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 Related to Primary open-angle glaucoma, left eye, moderate stage Impression/Plan - Co ntinue Combigan BID OU, Dorzolamide BID OU, and Travatan QHS OU. Related to Primary open-angle glaucoma, right eye, mild stage Impression/Plan - No treatment currently recommended.Patient moved to [place], [place] and will be transferring care locally. 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 Patient to notify us where to send records. Impression/Plan Related to Prese nce of intraocular lens Impression/Plan - Co ntinue latanoprost QHS OU, dorzolamide BID OU and Combigan BID OU. Related to Primary open-angle glaucoma, mild stage Impression/Plan - Co ntinue latanoprost QHS OU, dorzolamide BID OU and Combigan BID OU. 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 Relat ed to Other secondary cataract, bilateral Follow up - ay for Glaucoma check with Dr. Reza. Impression/Plan - No progression, continue latanoprost QHS OU, dorzolamide BID OU and Combigan BID OU. Patient stated he has been using dorzolamide and Combigan QD OU which explains why IOP is borderline 23/22. Will start using BID for now. If IOP goes significantly lower on BID dosing, consider discontinuing an IOP agent. Related to Primary open-angle glaucoma, moderate stage Impression/Plan - Co ntinue latanoprost QHS OU, dorzolamide BID OU and Combigan BID OU. Related to Primary open-angle glaucoma, mild stage Follow up - Return i n [address] Gabby Reza for Dilated Exam , OCT (ON). Impression/Plan Related to Bilat eral pterygium of eyes Impression/Plan - Pa tient not significantly bothered. Monitor. Related to Presence of intraocular lens Impression/Plan - Un clear if progression occurred from post op IOP spikes or if natural progression. Patient referred to Dr. Reza for eval, repeat VF and for consideration for SLT. Until f/u continue all 3 drops: latanoprost qd, combigan bid, dorzolamide bid. Related to Primary open-angle glaucoma, moderate stage Impression/Plan - Co ntinue all 3 drops: latanoprost qd, combigan bid, dorzolamide bid. Related to Primary open-angle glaucoma, mild stage Impression/Plan Related to Amylo id pterygium of eye, bilateral Impression/Plan - Monitor Relate d to Puckering of macula, left eye Impression/Plan - Pa tient not significantly bothered. Monitor. Related to Presence of intraocular lens Follow up - next gerald ilable with Dr. Reza for glaucoma eval and consideration for SLT, repeat VF also Oct Impression/Plan - Co ntinue all 3 drops: latanoprost qd, combigan bid, dorzolamide bid. F/u in Spring for VF. Unable to use OCT to effectively monitor condition due to vitreous opacity interference. Related to Primary open-angle glaucoma, moderate stage Oct- Impression/Plan - Pa tient inclined to monitor. Related to Puckering of macula, left eye Oct- Impression/Plan - Monitor Relate d to Presence of intraocular lens Oct- Impression/Plan - Pa tient not significantly bothered. Monitor. 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 F/u in Spring for VF. Related to Primary open-angle glaucoma, mild stage Impression/Plan Related to Amylo id pterygium of eye, bilateral Follow up - 2 months for Dilation and OCT nerve Impression/Plan - Bifocal SRx is sued Related to Presbyopia Impression/Plan - Fi fabián prednisolone and ketorolac OD this week. Related to Pseudophakia Impression/Plan - Co ntinue using dorzolamide, latanoprost and combigan. Rx's issued for each. F/u in 2 months for dilation and OCT nerve. 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 Loretta Norwood Impression/Plan - Hold on SRx Re lated to Regular astigmatism Impression/Plan - Hold on SRx Re lated to Hypermetropia Impression/Plan - Co ntinue glaucoma drops Related to Open-angle glaucoma, unspecified Impression/Plan - Di scontinue gatifloxacin, continue ketorolac and prednisilone acetate following taper schedule given. Related to Pseudophakia Impression/Plan - Co ntinue using glaucoma drops. No further treatment needed. Related to Ocular hypertension Keep Wednesday apt with Dr. Josie coburn. Related to Open-angle glaucoma, unspecified Follow up - Keep Wed apt with Dr. Norwood. Related to Open-angle glaucoma, unspecified Impression/Plan - Co ntinue travatan both eyes. Continue dorzolamide OU, but increase dosage OD to TID. Continue Combigan BID OD. Finish acetazolamide 500 mg BID x 4 days. Rec continue additional drops until later apt, even if IOP is good off Acetazolamide as pt will be traveling to [facility] for 's back surgery. When he is back and IOP stable try off Combigan. Related to Open-angle glaucoma, unspecified Impression/Plan - Bu rped wound in the office today which reduced pressure to 14. Continue travatan both eyes. Continue dorzolamide OU, but increase dosage OD to TID. Continue Combigan BID OD. Start acetazolamide 500 mg BID x 4 days. Related to Open-angle glaucoma, unspecified Impression/Plan - Me ds per glaucoma plan. Related to Pseudophakia Follow up - Return t omorrow for IOP check with Dr Reza in [place]. Impression/Plan - No additional anti-inflammatory treatment indicated. Continue gatifloxacin, ketorolac and prednisolone acetate as instructed OD. Wear eye shield for naps and bedtime for one week OD. Call if eye pain, redness or decreased vision. Continue to follow taper schedule for prednisilone and ketorolac OS. Related to Pseudophakia Follow up - Pressure check tomorrow with Dr. Chavez in [place]. Related to Ocular hypertension Impression/Plan Related to Ocula r hypertension Impression/Plan - Co ntinue travatan both eyes. Continue dorzolamide OU, but increase dosage OD to TID. OK to continue off diamox. Add Combigan BID OD. Related to Open-angle glaucoma, unspecified Impression/Plan - Re prisca patient to Dr. Chavez at [facility] for same day wound burp. Patient advised to d/c combigan OS. Related to Ocular hypertension Impression/Plan - IO P 13 after the wound was burped. Add Combigan 1 gtt BID OD. (OK off Combigan OS). Increase dorzolamide OD to TID, and continue Travatan daily. Related to Pseudophakia Impression/Plan - Sc hedule cataract surgery OD. Premium lens option discussed, patient elects standard IOL. Use Atropine sulfate, topical, BSS, aim distance. Risks, benefits and alternatives of surgery discussed; including infection, glaucoma, corneal edema, retinal detachment, cystoid macular edema, retained lens fragments, need for additional surgery, need for glasses, no guarantee of 20/20 outcome, and special circumstances such as PXF issues and IFIS,if applicable.Z9002 22.5, ACL 19.5 Related to Senile nuclear sclerosis Return in Related to Pseud ophakia 2 weeks for 3 week f /u OS with Dr. Loretta Norwood Related to Ocular hypertension Impression/Plan - Co ntinue previous glaucoma drops Related to Open-angle glaucoma, unspecified Impression/Plan - Surgery planne d. Related to Senile nuclear sclerosis Impression/Plan - Pt reports he is not significantly bothered. Will monitor. 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 Loretta Norwood Related to Ocular hypertension Impression/Plan - Pa sharif is off diamox, still using travatan and dorzolamide qd OU. Pt instructed to add combigan bid OS. Related to Ocular hypertension Wednesday for 1 week followup after cataract surgery OS with Dr. Mateo Norwood Related to Pseudophakia Impression/Plan - OC T of macula at next visit if refraction VA not good Related to Epiretinal membrane Impression/Plan - co ntinue all drops including glaucoma drops and followup on Wednesday for 1 week post op f/u Related to Pseudophakia Impression/Plan - Co ntinue glaucoma meds, finish diamox Related to Open-angle glaucoma, unspecified Follow up - for 1 week followup after cataract surgery OS with Dr. Mateo Norwood Related to Pseudophakia Wednesday for IOP check with Dr. Mateo Norwood Related to Ocular hypertension Impression/Plan - Co ntinue current treatments and followup on Wednesday for IOP check Related to Pseudophakia Follow up - Wednesday f or IOP check with Dr. Mateo Norwood Related to Ocular hypertension Impression/Plan - No further treatment indicated, OK to continue current treatment and re-evaluate on Wednesday. Related to Ocular hypertension Follow up - 1 day fo r IOP check with Dr. Loretta Norwood Impression/Plan - Wo und re-burped by Dr. Chavez today. IOP signficanctly improved afterward. Patient prescribed diamox 500mg bid x 5 days. Discussed common side effects of diamox. Related to Ocular hypertension Impression/Plan - recheck tomorr ow Related to Pseudophakia Impression/Plan - Co ntinue glaucoma drops OU Related to Open-angle glaucoma, unspecified 1 day at [facility] for IOP check Re lated to Ocular hypertension Follow up - 1 day at [facility] for IOP check Related to Ocular hypertension Impression/Plan - IO P lowered in office by Dr. Kathy KEBEDE by burping incision. Patient advised to restart his glaucoma drops: travatan qhs OU and dozolamide qd OU and f/u tomorrow for another IOP check Related to Ocular hypertension Impression/Plan - Co ntinue all drops including restarting glaucoma drops. Follow-up tomorrow with Dr. Lroetta Norwood for IOP check Related to Pseudophakia Impression/Plan - Sh ould resolve as IOP becomes controlled. No additional treatment indicated at this time. Related to Cornea edema Impression/Plan - Sc hedule cataract surgery OS. Premium lens option discussed, patient elects standard IOL. Use Atropine sulfate, topical, BSS, aim distance. Risks, benefits and alternatives of surgery discussed; including infection, glaucoma, corneal edema, retinal detachment, cystoid macular edema, retained lens fragments, need for additional surgery, need for glasses, no guarantee of 20/20 outcome, and special circumstances such as PXF issues and IFIS,if applicable.22.0 OS Second eye likely to follow. Related to Senile nuclear sclerosis Impression/Plan - Sw itch to Latanaprost OU BID. Continue Dorz. OU BID. Related to Open-angle glaucoma, unspecified Assessments Type Assessment Date No Information Patient Care Teams Name Effective Dates (start - stop) Status Members No Information
--- OUTSIDE RECORDS SUMMARY | 2024-03-19 14:35 | XMS_ITS | Clinical Summary ---
Author Organization [facility] Address [address] [place] [address] Care Team Providers Care Vice President Fixed Income Name Role Phone Leena Rodriguez MD Primary Care Provider [phone] Allergies No known active allergies Medications Medication [...] 23 valent 05/27/2010,12/07/2002 TDAP Vaccine (Adacel) 03/30/2013 Family History Medical History Relation Comments Heart Disease Father Brain Tumor Sister Relation Status Comments Father Sister Social History Tobacco Use Types Packs/Day Years [...] Comments Blood Pressure 130/72 07/12/2020 6:47 AM VRT MECHANIC Pulse 71 07/12/2020 6:47 AM VRT MECHANIC Temperature 35.8 ??C (96.5 ??F) 07/12/2020 6:47 AM CS T Respiratory Rate 18 07/12/2020 6:47 AM VRT MECHANIC Oxygen Saturation 93% 07/12/2020 6:47 AM VRT MECHANIC Inhaled Oxygen Concentration - - Weight 110.3 kg (243 lb 1.6 oz) 07/10/2020 6:48 AM VRT MECHANIC Height 177.8 cm (5' 10) 07/10/2020 6:48 AM VRT MECHANIC Body Mass Index 34.88 07/10/2020 6:48 AM VRT MECHANIC Plan of Treatment Not on file Medical Devices Implanted Type Area Major Assembler Device Identifier Shelf Expiration Date Model / Serial / Lot Graft Bone Magnifuse [id number] Implanted:Qty : 1 on 06/11/2020 by Nahid Recinos MD at Bone/Tis leti/Biol ogic N/A: Spine Lumbar [employer] 03/25/2022 [id number] / [id number] / Creo 5.5, 4.5 X 45mm Negron Coated Polyaxial Screw Implanted:Qty : 1 on 06/11/2020 by Nahid Recinos MD at N/A: Spine Thoracic [employer] 11/25/2023 5119.1346S / / [id number] Locking Caps Implanted:Qty : 16 on 06/11/2020 by Nahid Recinos MD at N/A: Spine Lumbar [employer] 1119.0000 / / [id number] 5.5mm Pre-Contoured Kp 350mm Implanted:Qty : 2 on 06/11/2020 by Nahid Recinos MD at N/A: Spine Lumbar [employer] 1119.8732 / / [id number] Rise Spacer 10 X 30mm, 7-14mm Implanted:Qty : 1 on 06/11/2020 by Nahid Recinos MD at N/A: Spine Lumbar [employer] 193.103 / / [id number] 5.5mm Cross Connect 32-40mm Implanted:Qty : 1 on 06/11/2020 by Nahid Recinos MD at N/A: Spine Lumbar [employer] 1119.0034 / / [id number] 5.5mm Cross Connect 48-60mm Implanted:Qty : 1 on 06/11/2020 by Nahid Recinos MD at N/A: Spine Lumbar [employer] 1119.0046 / / [id number] Creo 5.5, 4.5 X 45mm Negron Coated Polyaxial Screw Implanted:Qty : 1 on 06/11/2020 by Nahid Recinos MD at N/A: Spine Thoracic [employer] 02/25/2024 5119.1346S / / [id number] Creo 5.5, 6.5 X 50mm Implanted:Qty : 7 on 06/11/2020 by Nahid Recinos MD at N/A: Spine Lumbar [employer] 5119.1650 / / [id number] Creo 5.5, 6.5 X 60mm Implanted:Qty : 1 on 06/11/2020 by Nahid Recinos MD at N/A: Spine Lumbar [employer] 5119.1660 / / [id number] Creo 5.5, 7.5 X 50mm Implanted:Qty : 1 on 06/11/2020 by Nahid Recinos MD at N/A: Spine Lumbar [employer] 5119.1750 / / [id number] Creo 5.5, 5.5 X 50mm Implanted:Qty : 1 on 06/11/2020 by Nahid Recinos MD at N/A: Spine Lumbar [employer] 5119.1550 / / [id number] Creo 5.5, 6.5 X 45mm Implanted:Qty : 1 on 06/11/2020 by Nahid Recinos MD at N/A: Spine Lumbar [employer] 5119.1644 [id number] Creo 5.5, 6.5 X 55mm Implanted:Qty : 2 on 06/11/2020 by Nahid Recinos MD at N/A: Spine Lumbar [employer] 5119.1654OCT2020 Creo 5.5, 7.5 X 45mm Implanted:Qty : 1 on 06/11/2020 by Nahid Recinos MD at N/A: Spine Lumbar [employer] 5119.1744OCT2020 Advance Directives For more information, please contact: [phone] Documents on File Type Date Recorded Patient Pocket Creaser Expl anation Advance Directives and Living Will 05/06/2020 12:30 PM Health Care Directiv e 02/24/18 * Full Code (Latest Code Status on File) Date Activated Date Inactivated Comments 06/11/2020 9:38 PM 06/18/2020 4:07 PM All basic and advanced life-sustaining interventions are performed as appropriate Question Answer Comments Code status determined by: Other (please documen t) Healthcare Agents on File Name [facility] Thony East Son [employer] Alterna te Health Care Agent Shira Crow Daughter [employer] Herman osorio Health Care Agent Jacklyn East Spouse Health Care Agent Care Teams Vice President Fixed Income Relationship Specialty Start Date End Date Leena Rodriguez MD [address] [address] PCP - General Internal Medicine 03/27/20
--- OUTSIDE RECORDS SUMMARY | 2024-03-19 14:35 | XMS_ITS | Continuity of Care Document ---
Author Organization [facility] Address [address] [place] [address] Phone Care Team Providers Care Core Dipper Name Role Phone Rico Ramsay MD Unavailable Unavailable Allergies, Adverse Reactions, Alerts Substance Reaction Status Criticality No Known Allergies Active No Inform ation Medications Medication Instructions Dosage Effective Dates (start - stop) Status Comments CBD oil (unknown strength) as needed Not Available - Active TYLENOL (unknown strength) as needed Not Available - Active Aleve 220 mg tablet as needed - Active PINK BISMUTH (unknown strength) Not Available - Active aspirin 81 mg tablet,delayed release take 1 tablet by oral route every day 81 MG - Active TIMOLOL MALEATE (unknown strength) Instill one drop in both eyes 3 times daily Not Available - Active BRIMONIDINE TARTRATE (unknown strength) instill 1 drop by ophthalmic route 3 times every day into affected eye(s) Not Available - Active TRAVATAN Z (unknown strength) instill 1 drop by ophthalmic route 3 times every day into affected eye(s) in the evening Not Available - Active phentermine 37.5 mg capsule take 1 capsule by oral route every day before breakfast - Active glucosamine-chondro itin 500 mg-400 mg capsule Take 3 capsules daily - Active FISH OIL (unknown strength) 1200mg 3 times daily Not Available - Active TURMERIC (unknown strength) 450mg daily Not Available - Active losartan 100 mg-hydrochlorothiaz chevy 25 mg tablet take 1 tablet by oral route every day 1.00 tablet - Active Procedures Procedure Date Office/Outpatient Visit, [facility] Advance Directives Directive Yes / No Effective Date File Name No Information Encounters Encounter Description Practice Location Reason(s) For Visit Diagnoses Date Provider Providers Copied on Encounter Office/Outpa tient Visit, [facility], [address], [place], [address], [place] tel:[phone] [facility] , leg pain (chief complaint) Pain in leg, unspecified 0 Devendra Gómez. [facility] [address], [place], [address], [place]. tel:[phone] Referring Provider: Rico Garcia, [facility] [address], [place], [address]. tel:[phone] [facility], [address], [place], [address], [place] tel:[phone] [facility] , No Information 0 Devendra Gómez. [facility] [address], [place], [address], [place]. tel:[phone] Family History Family Member Type Diagnosis Age At Onset Problem No family history of Rheumat oid arthritis Payers Payer name Insurance type Covered alliance party ID Authorashleya kenny(s) Medicare MB [id number] [facility] [id number] Social History Type Description Quantity Date Captured Comments Alcohol Use Details beer 3 beers weekly Caffeine Use Details Unknown Tobacco Use Status Current non-smoker 20 Smoking Status Never smoker Non-Smoking Tobacco Use Details : No Details Available : No Details Available Sex Male Vital Signs Date / Time: Height Weight BMI Pulse Rate Blood Pressure Temperature Respiratory Rate Body Surface Area Head Circumference Head Circ. Percentile Wt./Alejandro. Percentile BMI percentile Pulse Ox Inhaled Ox 3:13 PM 68.75 in 108.409 kg (239.00 lbs) 35.5 5 kg/m eter (2) 124/84 mm[Hg] 97.50 F Chief Complaint And Reason For Visit From encounter dated '02/01/2020 14:45'. leg pain (chief complaint) Reason For Referral Reason For Referral No Information History Of Present Illness Encounter Date Complaint History Of Prese nt Illness leg pain Functional Status Date Functional Assessmen t Pain Score 8/10 Instructions Date Instruction Additional Infor matlaila No Information Assessments Type Assessment Date assessment Pain in leg, unspecified 2019 Patient Care Teams Name Effective Dates (start - stop) Status Members No Information
--- OUTSIDE RECORDS SUMMARY | 2024-03-19 14:35 | XMS_ITS | Clinical Summary ---
Author Organization [facility] Address [place], [place] [address] Care Team Providers Care Cardiac Nurse Practitioner Name Role Phone Lopez Barcenas MD Unavailable [phone] Unknown, Doctor Unavailable Unavailable Melodie Nick MD Primary Care Provider [phone] Nahid Recinos MD Unavailable [phone] Allergies Active Allergy Reactions Criticality Noted Date Comments Atorvastatin *Unknown Unknown 01/11/2024 arm pain Medications Medication Sig Dispensed Refills Start Date End Date Status travoprost 0.004% (TRAVATAN Z) 0.004 % ophthalmic solution Place 1 Drop into the eye(s) once daily. Active Lactobacillus rhamnosus GG (CULTURELLE) 15 billion cell capsule Take 1 capsule by mouth once daily. Active brimonidine (ALPHAGAN) 0.2 % ophthalmic solution Place 1 Drop into both eyes. Active CPAPIndications: SARA on CPAP CPAP machine for home use at pressure 12cmw, nasal mask x1/3month with nasal cushion x2/mo 1 Each 11 03/26/2021 Active budesonide (ENTOCORT EC) 3 mg capsuleIndicatio ns:Lymphocytic colitis TAKE 3 PILLS ONCE A DAY FOR 1 MONTH, TAKE 2 PILLS ONCE A DAY FOR 1 MONTH, TAKE 1 PILL ONCE A DAY FOR 1 MONTH 90 Capsule 2 09/02/2021 Active cyanocobalamin (Vitamin B-12) 1,000 mcg tablet Take 1,000 mcg by mouth once daily. Active aspirin 325 mg tablet Take 325 mg by mouth once daily with a meal. Active losartan (COZAAR) 100 mg tabletIndication s:HTN (hypertension) Take 1 Tablet (100 mg) by mouth once daily. 90 Tablet 01/11/2024 Active rosuvastatin (CRESTOR) 10 mg tabletIndication s:Ischemic vascular disease Take 1 Tablet (10 mg) by mouth once daily. 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 90 Tablet 01/11/2024 Active ascorbic acid, vitamin C, (Vitamin C) 1,000 mg tablet Take 1,000 mg by mouth once daily. Active furosemide (LASIX) 20 mg tabletIndication s:Bilateral leg edema Take 1 Tablet (20 mg) by mouth once daily in the morning. 30 Tablet 02/23/2024 Active traZODone (DESYREL) 50 mg tabletIndication s:Insomnia, idiopathic Take 2 Tablets (100 mg) by mouth at bedtime if needed for Sleep. 180 Tablet 02/25/2024 Active traZODone (DESYREL) 50 mg tabletIndication s:Insomnia, idiopathic Take 2 Tablets (100 mg) by mouth at bedtime if needed for Sleep. 31 Tablet 01/11/2024 02/25/2024 Discontinued( Reorder (E-cancel not sent)) predniSONE (DELTASONE) 20 mg tabletIndication s:Swelling of joint of left wrist Take 2 Tablets (40 mg) by mouth once daily with a meal for 5 days. 10 Tablet 02/23/2024 02/28/2024 traZODone (DESYREL) 50 mg tabletIndication s:Insomnia, idiopathic Take 2 Tablets (100 mg) by mouth at bedtime if needed for Sleep. 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 Congestive heart failure 12/31/2020 Postoperative shock 06/11/2020 S/P lumbar fusion 06/11/2020 Primary open angle glaucoma of right eye 017 Pseudophakia 02/02/2017 Pterygium 02/02/2017 Vitreous degeneration 02/02/2017 Herpes zoster without complication 01/24/2016 Hypercholesteremia 05/15/2015 Glaucoma 03/26/2015 Male erectile disorder of organic origin 015 Obesity 03/26/2015 SARA on CPAP 03/26/2015 OA (osteoarthritis) 03/26/2015 Overview: Bilateral shoulders; Right worse than left Gout 03/20/2015 Hypertension 03/20/2015 Arthritis, degenerative 03/20/2015 Resolved Problems Problem Noted Date Diagnosed Date Resolved Date Respiratory failure, post-operative 06/11/2020 12/31/2020 Encounters Date Type Department Care Team Description 03/15/2024 10:00 AM CDT Office Visit [facility] [address] [place] [address] Melodie Nick MD Follow Up 03/15/[address] [address] Melodie Nick MD Appointment 03/15/2024 Travel 02/25/2024 10:00 AM CDT Office Visit [facility] [address] [place] [address] Melodie Nick MD Leg Swelling (Lasix is helping with swelling. ); Wrist Pain/problem (still swollen, he states this is better) 02/25/2024 Telephone [facility] [address] [place] [address] Melodie Nick MD Results 02/25/2024 Travel 02/23/2024 9:00 AM CDT Ancillary Procedure [facility] [address] [place] [address] 02/23/2024 8:20 AM CDT Office Visit [facility] [address] [place] [address] Melodie Nick MD Follow Up (Swelling in left wrist and left leg); Immunization/Inject ion (COVID-19 vaccine) 02/23/2024 Telephone [facility] [address] [place] [address] Cardiology, Anw Appointment (MARLIN- ANY CARD) 02/23/2024 Travel 02/04/2024 7:30 AM CDT Ancillary Procedure [facility] [address] [place] [address] 02/04/2024 Telephone [facility] [address] [place] [address] Melodie Nick MD Results 02/03/2024 9:50 AM CDT Office Visit [facility] [address] [place] [address] Mini Pinzon PA Leg Swelling 02/03/2024 Travel 02/03/2024 Nurse Triage [facility] [address] [place] [address] Melodie Nick MD Leg Swelling 01/11/2024 11:15 AM CDT Office Visit [facility] [address] [place] [address] Melodie Nick MD Medication Management (medication ); Blood Pressure (blood pressure-had problems in [place] ) 01/11/2024 Travel from Last 3 Months Immunizations Name Administration Dates Next Due COVID-19 Vaccine Spikevax (M oderna 50mcg/0.5mL) 12YO+ 9668-2815 Formula PF 02/23/2024 COVID-19 vaccine (Moderna 100mcg/0.5mL) PF, MDV 01/15/2022 COVID-19 vaccine (Pfizer-BioNTech 30mcg/0.3mL) P F, MDV 10/17/2020,09/21/2020 Influenza, High-dose Inactivated 04/27/2017 Influenza, High-dose Quadrivalent Inactivated Influenza, IIV3 (Age 6-35 mos) 05/27/2010 Influenza, IIV4 06/05/2019 Influenza, Inactivated AIIV4 (Age 65+ Years) Preserv Free 05/09/2021 Pneumococcal Poly,23-Valent (Pneumovax) 05/27/20 10,12/07/2002 Pneumococcal conj 13-Valent (Prevnar 13) 015 Tdap 03/30/2013 Tuberculin (PPD) 07/03/2020 Zoster (Shingrix-RZV, recombinant) 08/28/2020, Family History Medical History Relation Name Comments Heart Disease Father gibran is Good Health Mother Cancer Sister 1 Brain tumor Mental illness Sister 2 Relation Name Status Comments Father (Age 67) Mother (Age 94) Sister 1 Sister 2 Social History Tobacco Use Types Packs/Day Years Used Date Smoking Tobacco: Never Smokeless Tobacco: Never Tobacco Cessation:Counseling Given: Yes Alcohol Use Standard Drinks/Week Comments Yes 2 (1 standard drink = 0.6 oz pur e alcohol) PHQ-2 Answer Date Recorded PHQ-2 TOTAL SCORE 0 03/23/2023 Social Connections Answer Date Recorded Frequency of Communication with Friends and Fami ly 0 01/11/2024 Financial Resource Strain Answer Date R ecorded Difficulty of Paying Living Expenses 3 01/11/2024 Difficulty of Paying Living Expenses Not on file 01/11/2024 Food Insecurity Answer Date Recorded Worried About Running Out of Food in the Last Ye ar 1 01/11/2024 Transportation Needs Answer Date Record ed Lack of Transportation (Medical) 1 01/11/2024 Housing Stability Answer Date Recorded Unable to Pay for Housing in the Last Year 1 01/11/2024 Sex and Gender Information Value Date Recorded Sex Assigned at Not on file Gender Identity Not on file Sexual Orientation Not on file Obstetrics History Last Filed Vital Signs Vital Sign Reading Time Taken Comments Blood Pressure 126/70 03/15/2024 10:32 AM CDT Pulse 59 03/15/2024 10:13 AM CDT Temperature 36.8 ??C (98.2 ??F) 03/05/2022 9:33 AM CD T Respiratory Rate 20 05/18/2016 8:59 AM CDT Oxygen Saturation 96% 03/15/2024 10:13 AM CDT Inhaled Oxygen Concentration - - Weight 99.6 kg (219 lb 9.6 oz) 03/15/2024 10:13 AM CDT Height 174 cm (5' 8.5) 03/23/2023 1:11 PM CDT Body Mass Index 32.9 03/23/2023 1:11 PM CDT Plan of Treatment Upcoming Encounters Date Type Department Care Team (Late st Contact Info) Description 03/23/2024 11:00 AM CDT Ancillary Procedure [facility] [address] [place] [address] 03/24/2024 9:10 AM CDT Office Visit [facility] [address] [place] [address] Melodie Nick MD [address] [place] [address] 03/27/2024 2:45 PM CDT Ancillary Procedure [facility] [address] [place] [address] 05/02/2024 10:30 AM CDT Office Visit [facility] [address] [place] [address] Chandan Morales MD [address] [place] [address] Health Maintenance Due Date Last Done Comments Tetanus booster 03/30/2023 03/30/2013 BMI (ht and wt on same day) for age 18+ 03/23/2024 03/23/2023, 01/14/2022, 12/31/2020, Additional history exists Medicare Wellness for age 65+ 03/23/2024, 01/14/2022, 12/31/2020 Depression screening for age 12+ 03/25/2024 03/25/2023, 03/23/2023, 03/23/2023, Additional history exists Influenza for age 65+ 04/23/2024 05/09/2021 , 05/31/2020, 06/05/2019, Additional history exists COVID-19 vaccine series ( season) 2024 02/23/2024, 01/15/2022, 10/17/2020, Additional history exists Tdap Completed 03/30/2013 Pneumococcal series for age 65+ Completed 12/12/2014, 05/27/2010, 12/07/2002 Zoster (shingles) series for age 50+ Completed 08/28/2020, 05/31/2020 Medical Devices Implanted Type Area Powerhouse Mechanic Supervisor Device Identifier Shelf Expiration Date Model / Serial / Lot Lens,Aspheric Silicone [id number] - [id number] Implanted:Qty: 1 on 03/26/2015 by Gabby Reza MD at [facility] Left: Eye [employer] 09/18/2019 [id number] / [id number] / N/A Lens,Aspheric Silicone [id number] - [id number] Implanted:Qty: 1 on 04/09/2015 by Gabby Reza MD at [facility] Right: Eye [employer] 09/04/2019 [id number] / [id number] / N/A Procedures Procedure Name Priority Date/Time Associated Diagnosis Comments BASIC METABOLIC PANEL Routine 02/25/2024 10:53 AM CDT Bilateral leg edema Congestive heart failure, unspecified HF chronicity, unspecified heart failure type (HC) XR WRIST 3 VIEWS LEFT Routine 02/23/2024 8:50 AM CDT Swelling of joint of left wrist US VENOUS LOWER EXTREMITY LEFT [facility]LIN 02/04/2024 7:33 AM CDT Left leg swelling PRO-BNP Routine 02/03/2024 10:36 AM CDT Congestive heart failure, unspecified HF chronicity, unspecified heart failure type (HC) BASIC METABOLIC PANEL STAT 02/03/2024 10:36 AM CDT Left leg swelling from Last 3 Months Results * (ABNORMAL) BASIC METABOLIC PANEL (02/25/2024 10:53 AM CDT) Only the most recent of2 resultswithin the time period is included. SODIUM 138 136 - 145 mmol/L 02/25/2024 4:18 PM CDT [facility] POTASSIUM 4.0 3.5 - 5.1 mmol/L 02/25/2024 4:18 PM CDT [facility] CHLORIDE 103 98 - 107 mmol/L 02/25/2024 4:18 PM CDT [facility] CO2,TOTAL 24 22 - 29 mmol/L 02/25/2024 4:18 PM CDT [facility] ANION GAP 11 5 - 18 02/25/2024 4:18 PM CDT [facility] GLUCOSE 116(H) 70 - 99 mg/dL 02/25/2024 4:18 PM CDT [facility] CALCIUM 9.6 8.8 - 10.2 mg/dL 02/25/2024 4:18 PM CDT [facility] BUN 32(H) 8 - 23 mg/dL 02/25/2024 4:18 PM CDT [facility] CREATININE 0.83 0.70 - 1.20 mg/dL 02/25/2024 4:18 PM T [facility] BUN/CREAT RATIO 39(H) 10 - 20 4:18 PM CDT [facility] eGFR 85(L) >90 mL/min/1.7 3m2 02/25/2024 4:18 PM CDT [facility] Comment:As of 2021, eG FR is calculated by the CKD-EPI creatinine equation without race adjustment. ??eGFR can be influenced by muscle mass, exercise, and diet. ??The reported eGFR is an estimation only and is only applicable if the renal function is stable. Blood BLOOD SPECIMEN / Unknown Venipuncture / Unknown 02/25/2024 10:53 AM CDT 02/25/2024 10:55 AM CDT Melodie Nick MD [facility] [address] [place] [address], [place] * XR WRIST 3 VIEWS LEFT (02/23/2024 8:50 AM CDT) Anatomical Region Laterality Modality WRISTS, WRIST L Computed Radiogr aphy 02/23/2024 4:19 PM CDT Narrative 02/23/2024 4:19 PM CDT For Patients: ??As a result of the Cures Act, medical imaging exams and procedure reports are released immediately into your electronic medical record. ??You may view this report before your referring provider. ??If you have questions, please contact your health care provider. Indication: Swelling Technique: Three views left wrist Comparison: None Findings: Widening of the scapholunate interval which measures 1.1 cm. Severe hypertrophic changes at the 1st carpometacarpal joint with exuberant callus formation and multifocal surrounding densities. Narrowing at the triscaphe joint with reactive subchondral sclerosis. Narrowing at the radioscaphoid and radiolunate joints. Chondrocalcinosis of the TFCC. Osteopenia. No fracture. 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 Chronic scapholunate ligament disruption. Dictated by Devon Antony MD @ 02/23/2024 4:19:04 PM (Electronically Signed) Procedure Note Devon Antony MD - 02/23/2024 For Patients: As a result of the Cures Act, medical imagingexams and procedure reports are released immediately into your electronicmedical record. You may view this report before your referring provider.If you have questions, please contact your health care provider. Indication: Swelling Technique: Three views left wrist Comparison: None Findings: Widening of the scapholunate interval which measures 1.1 cm. Severehypertrophic changes at the 1st carpometacarpal joint with exuberantcallus formation and multifocal surrounding densities. Narrowing at thetriscaphe joint with reactive subchondral sclerosis. Narrowing at theradioscaphoid and radiolunate joints. Chondrocalcinosis of the TFCC.Osteopenia. No fracture. 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 Chronic scapholunateligament disruption. Dictated by Devon Antony MD @ 02/23/2024 4:19:04 PM (Electronically Signed) Melodie Nick MD GENERAL IMAGING * US VENOUS LOWER EXTREMITY LEFT (02/04/2024 7:33 AM CDT) Anatomical Region Laterality Modality LEGS, LEG L, Abdomen Ultrasound 02/04/2024 7:44 AM CDT Impressions 02/04/2024 7:44 AM CDT Normal left lower extremity venous ultrasound, no sign of deep venous thrombosis. Dictated by Mick Bartholomew MD @ 02/04/2024 7:44:59 AM (Electronically Signed) Narrative 02/04/2024 7:44 AM CDT For Patients: ??As a result of the Cures Act, medical imaging exams and procedure reports are released immediately into your electronic medical record. ??You may view this report before your referring provider. ??If you have questions, please contact your health care provider. INDICATION: Leg pain and swelling. TECHNIQUE: Ultrasound venous duplex lower left extremity. ??Compression venous exam was performed using cardenas-scale, color Doppler, and spectral Doppler analysis. COMPARISON: None. FINDINGS: Deep veins: Sonographic imaging demonstrates the left common femoral, deep femoral, superficial femoral, popliteal, posterior tibial and the contralateral right common femoral veins to be fully compressible with normal color Doppler blood flow. Superficial veins: Greater saphenous vein is fully compressible. No popliteal cyst. Procedure Note Mick Bartholomew MD - 02/04/2024 For Patients: As a result of the Cures Act, medical imagingexams and procedure reports are released immediately into your electronicmedical record. You may view this report before your referring provider.If you have questions, please contact your health care provider. INDICATION: Leg pain and swelling. TECHNIQUE: Ultrasound venous duplex lower left extremity. Compression venous examwas performed using cardenas-scale, color Doppler, and spectral Doppleranalysis. COMPARISON: None. FINDINGS: Deep veins: Sonographic imaging demonstrates the left common femoral, deepfemoral, superficial femoral, popliteal, posterior tibial and thecontralateral right common femoral veins to be fully compressible withnormal color Doppler blood flow. Superficial veins: Greater saphenous vein is fully compressible. No popliteal cyst. IMPRESSION: Normal left lower extremity venous ultrasound, no sign of deep venousthrombosis. Dictated by Mick Bartholomew MD @ 02/04/2024 7:44:59 AM (Electronically Signed) Mini HAAS * PRO-BNP (02/03/2024 10:36 AM CDT) PRO-BNP 184 <450 pg/mL 02/03/2024 1:22 PM CDT [facility] Blood BLOOD SPECIMEN / Unknown Venipuncture / Unknown 02/03/2024 10:36 AM CDT 02/03/2024 10:36 AM CDT Narrative [facility] - 02/03/2024 1:22 PM CDT The following cut-points have been suggested for the use of proBNP for the diagnostic evaluation of heart failure (HF) in patient with acute dyspnea. Patients with eGFR >= 60 Diagnosis (rule in CHF) ? <50 Years Old ?450 pg/mL 50 - 75 Years Old ?900 pg/mL >75 Years Old ? 1800 pg/mL Exclusion (rule out CHF) Age Independent ?300 pg/mL A cutoff of 1200 pg/mL for patients with an eGFR <60 yields a diagnostic sensitivity of 89% and specificity of 72% for acute congestive heart failure. ? Mini HAAS SEND OUTS [facility] [address] [place] [address] from Last 3 Months Advance Directives Documents on File Type Date Recorded Patient Jackerman Expl anation Power of Assistant Editor 05/14/2005 [place] [employer] SHORT FORM POWER OF BRINE WELL OPERATOR, 05/14/2005 * Full Code (Latest Code Status on File) Date Activated Date Inactivated Comments 04/09/2015 7:25 AM 04/10/2015 2:28 AM * Full Code Date Activated Date Inactivated Comments 03/26/2015 11:26 AM 03/27/2015 2:31 AM * Full Code Date Activated Date Inactivated Comments 01/02/2015 6:40 AM 01/03/2015 2:27 AM Care Teams Cardiac Nurse Practitioner Relationship Specialty Start Date End Date Melodie Nick MD [address] [place] [address] PCP - General Family Practice 07/23/20 Lopez Barcenas MD Internal Medicine 02/19/15 Unknown, Doctor . 09/25/14 Nahid Recinos MD [address] [address] Orthopedics Surgery - Orthopedics 08/20/20
[2024-03-19] MEDS: TETANUS/DIPHTH/PERTUSSIS 0.5 ML SYRINGE IM (14:57)
== END 2024-03-19 15:55 | disposition home or self-care (01) ==
PROVIDERS: Emergency Provider Internal Medicine; PCP Family Medicine
DX: S89.92XA Unspecified injury of left lower leg, initial encounter (principal); W01.0XXA Fall on same level from slipping, tripping and stumbling without subsequent striking against object, initial encounter; Y93.K1 Activity, walking an animal
CPT/HCPCS: 73562; 90471; 90715; 99283; 99284